=== PATIENT | female | born 1940 | race Caucasian/White ===

== ENCOUNTER → 2019-02-24 12:56 | Outpatient (CLI) | payer OTHER, SELFPAY ==
--- NOTE | 2019-02-24 | DI.MRI.S_ITS ---
PROCEDURE: MR KNEE RT WO CON INDICATIONS: Pain in right knee TECHNIQUE: Noncontrast sagittal PD fast spin echo and T2 fast spin echo with fat saturation, sagittal 3-D FLASH with fat saturation; coronal T1 spin echo and PD fast spin echo with fat saturation, and axial PD fast spin echo with fat saturation through the knee. COMPARISON: [facility] [place], [place], XR KNEE ARTHRITIC SERIES BI, 02/15/2019, 10:30. FINDINGS: Image quality: Excellent. Menisci: There is medial meniscal extrusion. Severe degenerative tear is present involving the anterior horn, body and posterior horn of the medial meniscus. There is horizontal tear involving the body and posterior horn the lateral meniscus. The meniscal root ligaments appear intact. Cruciate ligaments: Intact fibers of anterior cruciate ligament are not visualized. The posterior cruciate ligament is intact. Medial structures: The medial collateral ligament appears intact. The semimembranosus tendon insertionsand meniscocapsular junction appear intact. Visualized portions of the pes anserinus tendons appear normal. No abnormal bursal fluid. Lateral structures: The lateral collateral ligament and the biceps femoris tendon appear intact. The popliteus tendon appears normal; the popliteofibular ligament appears intact. Iliotibial band appears normal. Anterior structures: The quadriceps and patellar tendons appear intact. Patellar alignment is normal. No femoral trochlear dysplasia or ventral trochlear prominence. No edema in the infrapatellar fat pad. Bones and cartilage: No fractures. There is marrow edema in the medial femoral condyle and medial tibial plateau There is severe tricompartmental cartilage loss, most pronounced in the medial femorotibial compartment. Joint space: There is small knee joint fluid. Multiple synovial cysts are noted in posterior knee and near the proximal talofibular joint including a amall Packer's cyst. . Normal appearing synovial plicae are incidentally noted. IMPRESSION: 1. Intact fibers of ACL are not visualized, likely secondary to chronic tear. 2. Severe degenerative tear of the medial meniscus. 3. Horizontal tear involving the body and posterior horn the lateral meniscus. 4. Severe tricompartmental cartilage loss, most pronounced in the medial femorotibial compartment. Subchondral edema in the medial femoral condyle and medial tibial plateau is present, likely sequelae of bone on bone. 5. Multiple synovial cysts. Dictated by: Kim Blanco M.D. on 02/24/2019 at 14:28 Approved by: Kim Blanco M.D. on 02/24/2019 at 15:57
== END ==
PROVIDERS: Visit Provider Orthopaedic Surgery
DX: M25.561 Pain in right knee (principal); M71.21 Synovial cyst of popliteal space [Baker], right knee; M23.211 Derangement of anterior horn of medial meniscus due to old tear or injury, right knee; M23.221 Derangement of posterior horn of medial meniscus due to old tear or injury, right knee; M23.231 Derangement of other medial meniscus due to old tear or injury, right knee; M23.251 Derangement of posterior horn of lateral meniscus due to old tear or injury, right knee; M23.261 Derangement of other lateral meniscus due to old tear or injury, right knee
CPT/HCPCS: 73721

== ENCOUNTER 2019-04-29 06:39 | Inpatient (IN) | payer OTHER, SELFPAY ==
[2019-04-19 10:01] VITALS: BMI 24.3
[2019-04-29] VITALS (21 sets, daily range): BP systolic 138–171; BP diastolic 54–101; PULSE 57–77; RESP 8–23; TEMP 36–37.2; O2SAT 88–99; BMI 24.3
--- NOTE | 2019-04-29 07:00 | DI.RAD.S_ITS ---
PROCEDURE: XR KNEE RT 1TO2V INDICATIONS: TKA TECHNIQUE: 2 view(s) of the knee acquired. COMPARISON: None. FINDINGS: Bones: Patient is status post knee joint arthroplasty. Hardware components are in expected positions. Visualized bony structures are intact. Soft tissues: Overlying postoperative changes are noted. IMPRESSION: Post right total knee arthroplasty changes with anatomic right knee alignment. Dictated by: Tico Steven M.D. on 04/29/2019 at 11:35 Approved by: Tico Steven M.D. on 04/29/2019 at 11:36
[2019-04-29] MEDS: LACTATED RINGERS 1,000 ML 42 ML IV ×2 (07:10→09:49)
[2019-04-29] MEDS: ACETAMINOPHEN 325 MG TABLET 975 MG PO ×3 (07:17→20:39)
[2019-04-29] MEDS: VANCOMYCIN 1,000 MG/200 ML PIGGYBACK 200 MG IV (07:17)
[2019-04-29] MEDS: PREGABALIN 75 MG CAPSULE PO (07:18)
[2019-04-29] MEDS: CELECOXIB 200 MG CAPSULE PO (07:18)
--- NOTE | 2019-04-29 07:37 | PM.PREOP ---
Pre-operative Note Interval Note History & Physical reviewed/Exam performed by Physician: Yes Changes to H&P: No
--- NOTE | 2019-04-29 07:37 | P.OP_ITS ---
Operative Date/Time/Diagnoses Date of procedure: 04/29/19 Time of procedure: 07:59 Pre-op diagnosis: right knee OA Post-op diagnosis: same Procedure & Clinicians Procedure: Right total knee arthroplasty Same procedure as scheduled: Yes Indications: The patient has had progressively worsening right knee pain with radiographic changes consistent with arthritis. Non-operative management has failed and the patient has requested total knee replacement. The risks, benefits and alternatives to surgery were discussed with the patient prior to proceeding. Risks discussed included, but were not limited to, failure to relieve pain, stiffness, infection, nerve damage, deep venous thrombosis, pulmonary embolism, stroke, coma, heart attack, permanent paralysis and , as well as the potential need for eventual revision of the prosthetic. Surgeon: Steffany Washington Lead Material Handler: Patrick Ochoa Anesthesia Type: General Operative Notes Findings: Severe right knee osteoarthritis, good stability Closure Type: primary Specimen(s): none sent Prosthetic devices, grafts, tissues, transplants, or devices: Washington [employer] Nephew Journey BCS 2 size 4 right femur, size 4 right tibia, 35 x 7.5 mm patella, +10 poly Applied: drain(s) Estimated Blood Loss (mL): 200 Blood products transfused: none Tourniquet time (min): 73 Procedure in detail: The patient was seen in the pre-operative area, where the patient identified the right knee as the operative site and this was marked with my initials. The patient received pre-operative antibiotics, and was taken to the operating room and placed on the operative table in the supine position. After satisfactory anesthesia, a multimedia services manager out was performed. The right leg was encircled with a tourniquet about the proximal thigh, and the leg was prepared from the toes to the tourniquet with ChloroPrep in the usual fashion and draped through sterile drapes. The leg was elevated and exsanguinated with Eschmark bandage and the tourniquet inflated to [250] mmHg pressure. The knee was approached through an approximately 18 cm incision centered over the patella and carried into the knee through a medial parapatellar arthrotomy. A portion of the medial and lateral meniscus was resected. Soft tissue was carefully mobilized around the patella the patella was measured with a caliper. Bone was resected from the patella and the patellar height was reconstituted with up an appropriate sized patellar component. A cover was then placed on the patella. A small amount of additional medial and lateral meniscus was resected. The visionare guide fit well to the distal femur. It looked like an appropriate distal femoral cut and the cut was made without difficulty. The rotation was assessed and the appropriate size femoral guide was placed on the distal femur and finishing cuts were made. There was no evidence of notching. The anterior, posterior and chamfer cuts were then made. The posterior osteophytes and soft tissues were then removed. The posterior capsule was injected with part of a mixture of 60 ml 0.25% Marcaine mixed with 20 ml Exparel for post operative pain control. The remainder of this mixture was injected into the capsule and subcutaneous tissues during cement curing. The tibia was prepared and the visionaire guide fit well to the distal tibia. The rotation was assessed. The patient was placed in extension residual medial and lateral meniscus as well as any residual bone was carefully resected. [No] additional tibia was resected. Hemostasis was achieved especially posteriorly. Additional local was injected into the posterior capsule. The extension gap was assessed and additional releases for gap balancing were performed as necessary. It was checked with the gap treasury specialist. The femoral component was trial was placed and the notch was finished. Trial tibial and femoral components were then placed and the knee placed through a range of motion. Range of motion was [0-130], with good stability throughout the range. The trials were then removed, and the tibia was finished. The bone was prepared with pulsatile lavage, and dried with a sponge. Cement was applied and the final prosthetics placed. Excess cement was removed during and after cement curing. A brief Betadine soak was performed. After confirming there was no extruded cement posteriorly, the final tibial insert was placed. The knee was copiously irrigated and the tourniquet deflated. Hemostasis was obtained with the Bovie. A drain was placed and brought out superolaterally. The capsule was closed with interrupted Vicryl suture. The subcutaneous layer was closed with barbed sutures, and the skin with a running 3-0 V-Lock suture and Surgical glue. An Aquacel Ag dressing was applied and the patient was taken to recovery having tolerated the procedure well. Complications: none Post-operative Condition: stable Disposition: Acute Care Plan for aftercare: The patient will be maintained on a standard total knee replacement protocol with weight bearing as tolerated. The patient will receive aspirin and sequential compression devices for DVT prophylaxis. The patient will be discharged home when safe for the home environment.
[2019-04-29] MEDS: CEFAZOLIN 2 GM/100 ML FROZ.PIGGY IV ×2 (08:15→16:33)
[2019-04-29] MEDS: TRANEXAMIC ACID 1,000 MG VIAL 2000 MG INJ ×2 (08:20→09:47)
--- NOTE | 2019-04-29 08:41 | SUR.OPER ---
Supine on padded OR bed. Pillow under head, arms secured on padded armboards <90 degree abduction. Safety belt across torso. Non-operative leg secured with tape over blanket over lower leg. Operative leg secured in DeMayo positioner. Foam padded brace at thigh of operative leg.
[2019-04-29] MEDS: BUPIVACAINE 0.25% W/ EPI 30 ML VIAL 60 ML INJ (08:53)
[2019-04-29] MEDS: BUPIVACAINE LIPOSOME 266 MG/20 ML VIAL INJ (08:53)
[2019-04-29] MEDS: SODIUM CHLORIDE IRRIG SOLUTION 250 ML, POVIDONE-IODINE SPONGE STICKS 1 APPLIC IRR (09:01)
[2019-04-29] MEDS: HYDROMORPHONE 2 MG INJ 0.5 MG IV ×4 (10:40→11:16)
[2019-04-29] MEDS: fentaNYL 100 MCG/2 ML INJ 50 MCG IV (11:04)
[2019-04-29] MEDS: LACTATED RINGERS 1,000 ML 125 ML IV (11:48)
--- NOTE | 2019-04-29 14:32 | CM.DANOTE ---
DCP: Case received, EMR reviewed and met with patient. Introduced self and role. Was able to meet with patient, daughter and , to obtain baseline history and activity level. Patient was walking in zun[place] with physical therapist on her way back to her room when this partner integration planner arrived. Patient is a 78 year old female who admitted early this morning to the care of the orthopedic team. PCP: Dr. Blas Clement: confirmed: [facility]. Patient came to the hospital for a surgical procedure. She had a right total knee arthroplasty. Met with patient in her room, she had just been up with physical therapy using a walker, with daughter following behind her with wheel-chair. , Wally, was in room, as well as daughter. Patient alert and oriented, is hard of hearing. She has had knee surgery before on the other knee. Patient is independent at home, as well. She has outpatient physical therapy already set up. P: DCP to continue to follow. She should be able to go home when she is medically stable, and cleared by P.T. as well. Carmela Johnson RN/Sludge Control Operator
[2019-04-29] MEDS: IBUPROFEN 600 MG TABLET PO (16:33)
[2019-04-29] MEDS: BACLOFEN 10 MG TABLET PO (20:40)
[2019-04-29] MEDS: ASPIRIN EC 81 MG TABLET PO (20:40)
[2019-04-29] MEDS: DOCUSATE 100 MG CAPSULE PO (20:41)
[2019-04-29] MEDS: OXYCODONE IR 5 MG TABLET PO (21:23)
--- NOTE | 2019-04-29 21:47 | PC.NURSE ---
Patient up in chair most of the shift. Ambulated hallway with POWER HOUSE ENGINEER and to bathroom, CMS +, gait steady. Darrius wrap CDI. Pain controlled well with Tylenol, and percolone. Patient has been A&O, calm and cooperative.
--- NOTE | 2019-04-29 23:10 | PC.NURSE ---
took 3 RNs 2 attempts each for IV start, Myah RN, Eugenio RN and Mckenzie RN from ED that was able to get rt forearm iv in.
[2019-04-30] MEDS: CEFAZOLIN 2 GM/100 ML FROZ.PIGGY IV (00:19)
[2019-04-30] MEDS: OXYCODONE IR 5 MG TABLET PO ×3 (00:19→08:52)
[2019-04-30] MEDS: LACTATED RINGERS 1,000 ML 125 ML IV (02:12)
[2019-04-30 04:45] VITALS: BP 161/86; PULSE 71; RESP 16; TEMP 36.7; O2SAT 96
[2019-04-30] MEDS: IBUPROFEN 600 MG TABLET PO (05:10)
--- NOTE | 2019-04-30 06:29 | PC.NURSE ---
Pt VSS, CMS intact, pt has pain 5/10. Medicated w/ Oxycodone 5mg Q3. Ice pack applied. SCD's applied to left leg, Call light within reach.
[2019-04-30 07:47] LABS: Hematocrit 34.6 % (36-46); Hemoglobin 11.4 g/dL (12.0-16.0)
[2019-04-30 08:00] VITALS: BP 177/81; PULSE 68; RESP 16; TEMP 36.6; O2SAT 97
[2019-04-30] MEDS: ACETAMINOPHEN 325 MG TABLET 975 MG PO (08:51)
[2019-04-30] MEDS: DOCUSATE 100 MG CAPSULE PO (08:52)
[2019-04-30] MEDS: AMLODIPINE 5 MG TABLET 10 MG PO (08:52)
[2019-04-30] MEDS: ASPIRIN EC 81 MG TABLET PO (08:52)
[2019-04-30] MEDS: BACLOFEN 10 MG TABLET PO (08:52)
[2019-04-30] MEDS: MAGNESIUM OXIDE 400 MG TABLET PO (08:52)
--- NOTE | 2019-04-30 08:59 | PM.DS.1 ---
History of Present Illness History of Present Illness Date Patient Seen: 04/30/19 Time Patient Seen: 08:59 Chief complaint: [id number] Narrative: Please see HPI previously recorded in chart. Discharge Providers Provider Date of admission: 04/29/19 06:39 Discharge Date: 04/30/19 Primary care physician: Osmin Odonnell Consults: 04/29/19 07:00 Consult to Anesthesiology Routine Comment: Consulting Provider: Anesthesiologist Reason for consultation: Regional block for post operative pain control 04/29/19 11:36 Consult to Discharge Planning Routine Comment: Consult to Physical Therapy Evaluate & Treat Comment: Physician Instructions: postop TKA protocol Consult to Respiratory Therapy Evaluate & Treat Comment: Physician Instructions: Evaluate and treat Discharge provider: Sugar Quinteros PA-C Summary Hospital Course Discharge Diagnosis: s/p right TKA Hospital Course: Yaritza is a 78 year old female who had progressively worsening right knee pain with radiographic changes consistent with arthritis. Non-operative management had failed and the patient had requested total knee replacement. The risks, benefits and alternatives to surgery were discussed with the patient prior to proceeding. Risks discussed included, but were not limited to, failure to relieve pain, stiffness, infection, nerve damage, deep venous thrombosis, pulmonary embolism, stroke, coma, heart attack, permanent paralysis and , as well as the potential need for eventual revision of the prosthetic. After obtaining informed consent she was taken to the operating room where she underwent a right total knee arthroplasty on 04/29/[address] Washington which she tolerated well without any complications. Afterwards she was transferred to the acute care floor where she has been progressing well post operatively. She has mobilized with physical therapy and was cleared for discharge from their perspective. Her pain has been well controlled and she has home supply of oxycodone provided preoperatively. She is voiding appropriately and tolerating a diet. She denies any chest pain, shortness of breath, nausea, vomiting, fevers or chills. Will continue ASA 81mg BID for DVT prophylaxis. She is medically stable for discharge at this time. Status at Discharge Cognitive/behavioral status at discharge: oriented Functional status at discharge: uses cane/walker Overall status at discharge: patient is progressing back to baseline Exam Vital Signs (past 8 hours): Fraction of Inspired Oxygen 35 Oxygen Delivery Method Room Air Oxygen Flow Rate 0 Narrative Exam Narrative: 78 year old femal resting comfortably in bed. Alert and oriented in no acute distress. Aquacel dressing in place over right knee is CDI. Patient able to flex/extend the foot. Sensation intact to light touch in distal extremity. Calves are soft and compressible bilaterally. Palpable pedal pulse. Objective Labs Result Diagrams: 04/30/19 07:35 Discharge Plan Discharge Plan Patient Disposition: Home Discharge Med Rec/Prescriptions Prescriptions: New acetaminophen 325 mg Tablet 975 mg PO TID Qty: 60 RF: 0 aspirin 81 mg Tablet,Delayed Release (Dr/Ec) 81 mg PO BID Qty: 60 RF: 0 docusate sodium [DOK] 100 mg Capsule 100 mg PO BID Qty: 40 RF: 0 ibuprofen 600 mg Tablet 600 mg PO Q6HR PRN (Reason: As Needed For Fever/Mild Pain) Qty: 40 RF: 0 oxycodone 5 mg Tablet 5 mg PO Q3HR PRN (Reason: Pain, Moderate (4-6)) Qty: 1 RF: 0 Continued baclofen 10 mg Tablet 10 mg PO BID RF: 0 amlodipine 10 mg Tablet 10 mg PO DAILY RF: 0 fluticasone propionate [Flonase Allergy Relief] 50 mcg/actuation [place],Suspension 1 spray INTRANASAL BID RF: 0 magnesium oxide 400 mg magnesium Capsule 400 mg PO DAILY RF: 0 Discontinued aspirin 81 mg Tablet,Delayed Release (Dr/Ec) 81 mg PO QPM RF: 0 Follow up/Referrals: Osmin Odonnell [Primary Care Provider] - Steffany Washington MD [Physician] - Provider Discharge Instructions Diet: Diet as Tolerated Activity: Weight bear as tolerated. Please use walker or cane for fall prevention. Cold/Heat Therapy: Ice packs as needed. Other treatments: Refer to [employer] guide. Skin/Wound/Dressing Care Report to your healthcare provider any signs of infection, such as:: chills, fever, night sweats, unusual drainage and unusual redness Dressing: Darrius wrap can be removed tomorrow. Aquacel dressing is to remain in place. Please call the office if this becomes saturated. Visit Report/Discharge Packet Instructions: DI for Knee Replacement Discharge Data Primary Care Provider: Osmin Odonnell Discharges patient from system. Discharge Date/Time: 04/30/19 11:45
--- NOTE | 2019-04-30 09:08 | PT-IP ANOTE ---
PT initial Evaluation was complete on 04/29/19 at 14:36. All documation is found in patient care.
--- NOTE | 2019-04-30 10:00 | PT.IPTN ---
Current Diagnoses Unilateral primary osteoarthritis, right knee (04/29/19) Surgery Performed Operation Date: 04/29/19 07:45 Actual Procedures p Total Knee Arthroplasty(Right) - Steffany Washington MD Physical Therapy Treatment Note M2 PT-IP Current Condition Start: 04/29/19 13:53 Freq: NEEDED Status: Discharge Protocol: Document 04/29/19 14:36 AW (Rec: 04/29/19 15:01 AW [email or web address]) Physical Therapy Current Condition Current Condition Evaluation Date 04/29/19 Treatment Diagnosis s/p R TKA, impaired mobility Weight Bearing Status Weight Bearing Status Weight Bear as Tolerated M3 PT-IP Subjective Start: 04/29/19 13:53 Freq: NEEDED Status: Discharge Protocol: Document 04/30/19 10:00 GGD (Rec: 04/30/19 15:07 GGD [email or web address]) Subjective Physical Therapy Visit Type Type Treatment Note Visit Start Time 09:41 Visit Stop Time 10:04 Total Visit Minutes 23 Physical Therapy Visit Comments Patient Comments Pt hopes to D/C home. Therapy Pain Assessment Pain When Pain Assessed During Mobility Pain Present Pain Present Pain Reported Location right knee Intensity 4 M4 PT-IP Mobility and Gait Start: 04/29/19 13:53 Freq: NEEDED Status: Discharge Protocol: Document 04/30/19 10:00 GGD (Rec: 04/30/19 15:07 GGD [email or web address]) PT-Bed Mobility Assessment Sit to Supine Sit to Supine Standby Assistance Scooting Scooting to Edge of Bed Standby Assistance PT-Transfer Assessment Sit to and From Stand Sit to and from Stand Standby Assistance,Use of Upper Extremities Equipment Transfer Assistive Device Gait Belt,Front Wheeled Walker Transfers Transfer Destination Bed Transfer Ability Level of Assist Contact Guard Assistance Gait Assessment Gait Gait Assistance Required: Standby Assistance Distance (Feet) 230 Able to Maintain Weight Bearing Status Yes During Gait Assistive Devices Assistive Device Gait Belt,Front Wheeled Walker Orthotic/Prosthetic Devices or Brace: No Gait Deviations General Gait Pattern Antalgic,Decreased Feet Clearance,Flexed Trunk Factors Limiting Gait Function Factors Limiting Gait Function Decreased Activity Tolerance, Decreased Strength,Pain Comments Gait Comments P Stair Climbing Assessment Evaluation Level of Assist On Stairs Minimal Assistance Devices Stair Climbing Assistive Devices None Technique/Endurance Stair Climbing Direction Ascend and Descend Stair Climbing Technique Step to Step Number of Steps Climbed 3 Stair Climbing Set # Repetitions (reps) 1 Comments Stair Climbing Comments Pt used hand hold assist x min x 1. M5 PT-IP Objective Assessments Start: 04/29/19 13:53 Freq: NEEDED Status: Discharge Protocol: Document 04/29/19 14:36 AW (Rec: 04/29/19 15:01 AW [email or web address]) Orientation Orientation/Cognition Orientation Name,Month,Place,Situation Language Function Ability No Deficits Noted Safety Awareness Decreased Safety Awareness Memory Description No Deficits Noted Comments Pt sleepy/foggy, but easily directed. Decreased safety awareness due to anesthesia. Gross Range of Motion Upper Extremity ROM Assessment Within Functional Limits Lower Extremity ROM Assessment Right Impaired Strength Upper Extremity Strength Assessment Within Functional Limits Lower Extremity Strength Assessment Right Impaired Coordination Assessment Gross Coordination Gross Coordination WNL Sensation Assessment Sensation Gross Sensation WNL M6 PT-IP Treatment Start: 04/29/19 13:53 Freq: NEEDED Status: Discharge Protocol: Document 04/30/19 10:00 GGD (Rec: 04/30/19 15:07 GGD [email or web address]) Physical Therapy Treatment Exercises Exercises Ankle Pumps,Quad Sets,Heel Slides,Straight Leg Raises, Passive Knee Extension Hang Education Education Provided Safety M7 PT-IP Assessment and Plan Start: 04/29/19 13:53 Freq: NEEDED Status: Discharge Protocol: Document 04/30/19 10:00 GGD (Rec: 04/30/19 15:07 GGD [email or web address]) PT Summary Assessment and Plan Summary Assessment Summary Pt improving with mobility. She was safe with stair mobility with HH assist. she was able to progress gait distance. Pt safe for home D/ C home when medically stable. Frequency of Treatment Frequency Of Treatment Twice a Day Treatment Plan Physical Therapy Treatment Plan Bed Mobility Training,Transfer Training,Gait Training, Therapeutic Exercise,Balance Retraining,Post Op Education, Discharge Planning,Hot or Cold Pack,Neuromuscular Re-ed, Coordination Retraining,Manual Therapy Recommendations To Nursing Amount of Assist Needed Standby Assistance Discharge Recommendations PT Discharge Recommendations Home with Assistance, Outpatient PT
[2019-04-30 10:43] VITALS: PULSE 77; RESP 18
--- NOTE | 2019-04-30 11:31 | PC.NURSE ---
Addendum entered by Alyson Viramontes R.N. 04/30/19 11:59: clarified with PA that drain was to be pulled prior to d/c. Drain was pulled, 90 ml bloody output. Original Note: Discharge pt states pain controlled with oxy. up with CGA and FWW. d/c instructions provided to pt and family. Aware of f/u apt with SNO and also to contact MD with any additional questions or concerns. pt took all belongings with her. Returned meds from pharmacy including oxycodone. pt left in w/c with family and MANAGER [employer]WAY escort.
== END 2019-04-30 11:45 | disposition home or self-care (01) | DRG 470 ==
PROVIDERS: Admitting Provider Orthopaedic Surgery; PCP Student in an Organized Health Care Education/Training Program; Visit Provider Orthopaedic Surgery
PROC: 0SRC0JZ Replacement of Right Knee Joint with Synthetic Substitute, Open Approach (ICD-10-PCS; CPT 27447; principal; 2019-04-29 07:45)
DX: M17.11 Unilateral primary osteoarthritis, right knee (principal); I10 Essential (primary) hypertension; Z87.891 Personal history of nicotine dependence; M81.0 Age-related osteoporosis without current pathological fracture
CPT/HCPCS: 36415; 73560; 85014; 85018; 94762; 97110; 97116; 97161; 97530; C1776; C9290; J0690; J1170; J2250; J2704; J3010

== ENCOUNTER → 2021-06-01 14:26 | Outpatient (CLI) | payer MEDICARE, SELFPAY ==
[2019-04-29 14:49] VITALS: BMI 24.3
[2021-06-01] MEDS: COVID-19 VACC #3, MRNA(MOD) 50 MCG/0.25 ML VIAL IM (14:37)
== END ==
PROVIDERS: PCP Student in an Organized Health Care Education/Training Program; Visit Provider Internal Medicine
DX: Z23 Encounter for immunization (principal)
CPT/HCPCS: 0013A; 91301